=== PATIENT | male | born 1970 | race Hispanic/Latino ===

== ENCOUNTER 2020-01-13 18:10 | Emergency (ER) | payer OTHER ==
[2020-01-13] MEDS ORDERED: DEXAMETHASONE SOD PHOSPHATE 4 MG/ML 1ML VIAL ONE (19:09)
[2020-01-13] MEDS ORDERED: ORPHENADRINE CITRATE 30 MG/ML ML ONE (19:10)
[2020-01-13] MEDS ORDERED: KETOROLAC TROMETHAMINE 60 MG/2 ML VIAL ONE (19:10)
[2020-01-13] MEDS ORDERED: LIDOCAINE 5% TOPICAL PATCH TP ONE (19:10)
== END 2020-01-13 20:34 | disposition home or self-care (01) ==
LOC: EDH 18:10
DX: G89.29 Other chronic pain (principal); M54.5 Low back pain; I10 Essential (primary) hypertension; E78.00 Pure hypercholesterolemia, unspecified
CPT/HCPCS: 96372 ×3; 99284; J1100; J1885; J2360